=== PATIENT | female | born 1930 | race Caucasian/White ===

== ENCOUNTER 2018-07-29 12:28 | Emergency (ER) | payer MEDICARE ==
[~2018-07-29] VITALS: Ht 167.6 cm; Wt 75.0 kg
[2018-07-29] MEDS ORDERED: normal saline 1000ML IV soln IVB ONE (12:55)
[2018-07-29 12:58] LABS: BASOPHILS % (AUTO) 0.4 % (0-1); EOSINOPHILS # (AUTO) 0.1 X10'3 (0-0.9); EOSINOPHILS % (AUTO) 2.2 % (0-6); HEMOGLOBIN 14.3 g/dl (12.0-16.0); LYMPHOCYTES # (AUTO) 0.8 X10'3 (1.1-4.8); LYMPHOCYTES % (AUTO) 12.6 % (21-51); MEAN CORPUSCULAR HEMOGLOBIN 28.9 PG (27.0-31.0); MEAN CORPUSCULAR HGB CONC 32.4 % (33.0-36.5); MEAN PLATELET VOLUME 8.2 FL (7.4-10.4); MONOCYTES # (AUTO) 0.5 X10'3 (0-0.9); MONOCYTES % (AUTO) 7.5 % (2-12); NEUTROPHILS % (AUTO) 77.3 % (42-75); PLATELET COUNT 266 X10'3 (140-440); RED BLOOD COUNT 4.94 X10'6 (4.20-5.60); RED CELL DISTRIBUTION WIDTH 16.4 % (11.5-14.5); WHITE BLOOD COUNT 6.5 X10'3 (4.5-11.0)
[2018-07-29 13:14] LABS: ALANINE AMINOTRANSFERASE 39 U/L (12-78); ALBUMIN 3.4 G/DL (3.4-5.0); ALKALINE PHOSPHATASE 60 IU/L (46-116); ANION GAP 12 (8-16); ASPARTATE AMINO TRANSFERASE 30 U/L (10-37); BLOOD UREA NITROGEN 25 MG/DL (7-18); BUN/CREATININE RATIO 18.5 (6.6-38.0); CALCIUM 9.2 MG/DL (8.5-10.1); CHLORIDE 102 MMOL/L (99-107); CREATININE 1.35 MG/DL (0.40-0.90); GLUCOSE 110 MG/DL (70-104); POTASSIUM 3.7 MMOL/L (3.5-5.1); SODIUM 141 MMOL/L (135-145); TOTAL CARBON DIOXIDE 26.7 MMOL/L (24-32); TOTAL PROTEIN 6.8 G/DL (6.4-8.2); eGFR 37 ML/MIN
[2018-07-29 13:21] LABS: INR 1.1 INR; PARTIAL THROMBOPLASTIN TIME 26 SECONDS (22-32); PROTHROMBIN TIME 11.1 SECONDS (9.0-12.0)
[2018-07-29 15:15] LABS: CLARITY,URINE CLEAR (Clear); COLOR,URINE YELLOW (Yellow); GLUCOSE, URINE NEGATIVE (Neg); KETONES,URINE NEGATIVE (Neg); LEUKOCYTE ESTERASE ,URINE SMALL (Neg); NITRITES, URINE NEGATIVE (Neg); OCCULT BLOOD,URINE TRACE-INTACT (Neg); PH,URINE 5.5 (4.8-8.0); PROTEIN,URINE NEGATIVE (Neg); UROBILINOGEN,URINE 0.2 E.U/dL (0.2-1.0)
[2018-07-29 15:20] LABS: UA COLLECTION TYPE CLN CATCH MIDSTREAM
[2018-07-29 15:21] LABS: BACTERIA,URINE FEW /HPF (Neg); MUCUS STRANDS NONE SEEN /LPF (Neg); SQUAMOUS EPITHELIAL CELL,UR FEW /LPF (FEW); WBC,URINE 0-4 /HPF (0-4)
[2018-07-29] MEDS ORDERED: CEPH500C5 PO (15:57)
[2018-07-29 16:10] VITALS: BP 122/87
== END 2018-07-29 16:11 | disposition home or self-care (01) ==
LOC: ER 12:29
DX: N39.0 Urinary tract infection, site not specified (principal); I48.91 Unspecified atrial fibrillation; I25.2 Old myocardial infarction; Z88.0 Allergy status to penicillin; Z88.2 Allergy status to sulfonamides; Z79.2 Long term (current) use of antibiotics
CPT/HCPCS: 36415; 71045; 80053; 81001; 84145; 84484; 85025; 85610; 85730; 87502; 87503; 93005; 99284; J7030

== ENCOUNTER 2018-08-09 10:08 | Emergency (ER) | payer MEDICARE ==
[~2018-08-09] VITALS: Ht 167.6 cm; Wt 69.0 kg
[~2018-08-09 10:08] MED LIST: CEPH500C5 PO
[2018-08-09 10:44] LABS: CLARITY,URINE CLOUDY (Clear); COLOR,URINE YELLOW (Yellow); GLUCOSE, URINE NEGATIVE (Neg); KETONES,URINE TRACE mg/dl (Neg); LEUKOCYTE ESTERASE ,URINE NEGATIVE (Neg); NITRITES, URINE NEGATIVE (Neg); OCCULT BLOOD,URINE LARGE (Neg); PH,URINE 5.5 (4.8-8.0); PROTEIN,URINE 100 mg/dl (Neg); UROBILINOGEN,URINE 0.2 E.U/dL (0.2-1.0)
[2018-08-09 10:45] LABS: BASOPHILS % (AUTO) 0.6 % (0-1); HEMATOCRIT 40.5 % (35.0-45.0); HEMOGLOBIN 13.3 g/dl (12.0-16.0); LYMPHOCYTES # (AUTO) 0.9 X10'3 (1.1-4.8); LYMPHOCYTES % (AUTO) 19.6 % (21-51); MEAN CORPUSCULAR HEMOGLOBIN 29.1 PG (27.0-31.0); MEAN CORPUSCULAR VOLUME 88.3 FL (78-98); MEAN PLATELET VOLUME 8.9 FL (7.4-10.4); MONOCYTES # (AUTO) 0.6 X10'3 (0-0.9); MONOCYTES % (AUTO) 11.9 % (2-12); NEUTROPHILS # (AUTO) 3.2 X10'3 (1.8-7.7); NEUTROPHILS % (AUTO) 66.9 % (42-75); PLATELET COUNT 170 X10'3 (140-440); RED BLOOD COUNT 4.59 X10'6 (4.20-5.60); RED CELL DISTRIBUTION WIDTH 16.6 % (11.5-14.5); WHITE BLOOD COUNT 4.7 X10'3 (4.5-11.0)
[2018-08-09 10:46] LABS: UA COLLECTION TYPE STRAIGHT CATH
[2018-08-09 10:49] LABS: SQUAMOUS EPITHELIAL CELL,UR FEW /LPF (FEW)
[2018-08-09 10:50] LABS: RBC,URINE 20-50 /HPF (0-2)
[2018-08-09 10:51] LABS: BACTERIA,URINE 3+ /HPF (Neg)
[2018-08-09 10:52] LABS: AMORPHOUS URATES 1+
[2018-08-09 10:58] LABS: ALANINE AMINOTRANSFERASE 49 U/L (12-78); ALBUMIN 3.1 G/DL (3.4-5.0); ALKALINE PHOSPHATASE 57 IU/L (46-116); ANION GAP 8 (8-16); ASPARTATE AMINO TRANSFERASE 55 U/L (10-37); BILIRUBIN,TOTAL 0.8 MG/DL (0.1-1.0); BLOOD UREA NITROGEN 24 MG/DL (7-18); BUN/CREATININE RATIO 18.3 (6.6-38.0); CALCIUM 9.4 MG/DL (8.5-10.1); CHLORIDE 102 MMOL/L (99-107); CREATININE 1.31 MG/DL (0.40-0.90); GLUCOSE 109 MG/DL (70-104); SODIUM 137 MMOL/L (135-145); TOTAL CARBON DIOXIDE 26.9 MMOL/L (24-32); TOTAL PROTEIN 6.3 G/DL (6.4-8.2); eGFR 38 ML/MIN
[2018-08-09 11:00] LABS: POTASSIUM 3.9 MMOL/L (3.5-5.1)
[2018-08-09 11:14] LABS: INR 1.1 INR; PROTHROMBIN TIME 10.9 SECONDS (9.0-12.0)
[2018-08-09] MEDS ORDERED: NITR100C6 PO (11:58)
[2018-08-09 12:20] VITALS: BP 151/94
== END 2018-08-09 12:27 | disposition home or self-care (01) ==
LOC: ER 10:08
DX: N39.0 Urinary tract infection, site not specified (principal); I48.91 Unspecified atrial fibrillation; I25.10 Atherosclerotic heart disease of native coronary artery without angina pectoris; E78.00 Pure hypercholesterolemia, unspecified; Z98.61 Coronary angioplasty status; Z88.0 Allergy status to penicillin; Z88.2 Allergy status to sulfonamides; Z79.899 Other long term (current) drug therapy
CPT/HCPCS: 36415; 80053; 81001; 85025; 85610; 87077; 87088; 87186; 99284; P9612